=== PATIENT | female | born 1990 | race Hispanic/Latino ===

== ENCOUNTER 2018-02-10 00:33 | Emergency (ER) | payer OTHER ==
[2018-02-10] MEDS ORDERED: METAL LOCK LOOP XX (02:06)
[2018-02-10] MEDS: diphenhydrAMINE INJ 50MG/ML VIAL (J1200) IM (02:06)
[2018-02-10] MEDS: methylPREDNISolone INJ 125 MG/2 ML VIAL (J2930) IM (02:29)
== END 2018-02-10 03:04 | disposition home or self-care (01) ==
LOC: M ED 00:33
DX: T78.40XA Allergy, unspecified, initial encounter (principal)
CPT/HCPCS: J2930

== ENCOUNTER 2018-07-08 19:40 | Emergency (ER) | payer OTHER ==
[~2018-07-08] VITALS: Ht 160 cm; Wt 89.5 kg
[2018-07-08 19:40] VITALS: BP 130/73
[~2018-07-08 19:40] MED LIST: BENA25TA10 PO; PRED20TA PO
== END 2018-07-08 22:38 | disposition left against medical advice (07) ==
LOC: M ED 19:40
DX: M54.9 Dorsalgia, unspecified (principal); Z53.21 Procedure and treatment not carried out due to patient leaving prior to being seen by health care provider

== ENCOUNTER 2018-09-25 15:10 | Emergency (ER) | payer OTHER ==
[~2018-09-25] VITALS: Ht 160 cm; Wt 90.8 kg
[2018-09-25] MEDS ORDERED: EXCETAB33 PO (15:55)
--- NOTE | 2018-09-25 16:02 | REP ---
Chest one-view HISTORY: Chest pain Comparison: None The lungs are clear. The heart is normal in size. The pulmonary vasculature is normal in appearance. Impression: No acute disease. Electronically Signed by Lio Dunn MD 09/25/2018 03:54 P
[2018-09-25 16:06] LABS: BASO % 0.3 % (0.0-1.0); EOS % 0.2 % (0.0-3.0); HEMATOCRIT 38.1 % (36.0-47.0); HEMOGLOBIN 12.5 g/dl (12.0-15.5); LYMPH # 1.6 10^3/uL (1.5-6.5); LYMPH % 17.1 % (24.0-44.0); MEAN CORPUSCULAR HGB CONC 32.8 g/dl (32.0-36.5); MEAN CORPUSCULAR VOLUME 88.4 fl (80.0-96.0); MONO # 0.6 10^3/uL (0.0-0.8); MONO % 5.8 % (0.0-5.0); NEUTROPHILS # 7.3 10^3/uL (1.8-7.7); NEUTROPHILS % 76.3 % (36.0-66.0); PLATELET COUNT, AUTOMATED 378 10^3/uL (150-450); RED BLOOD COUNT 4.31 10^6/uL (4.00-5.40); WHITE BLOOD COUNT 9.5 10^3/uL (4.0-10.0)
[2018-09-25 16:31] LABS: HCG, SERUM QUALITATIVE NEGATIVE (NEGATIVE)
[2018-09-25 16:37] LABS: ACETAMINOPHEN LEVEL < 2.0 UG/ML (10.0-30.0); ALBUMIN 3.9 GM/DL (3.2-5.2); ALT/SGPT 24 U/L (12-78); BILIRUBIN,DIRECT 0.1 MG/DL (0.0-0.2); BILIRUBIN,TOTAL 0.5 MG/DL (0.2-1.0); BLOOD UREA NITROGEN 9 MG/DL (7-18); CALCIUM LEVEL 8.5 MG/DL (8.5-10.1); CARBON DIOXIDE LEVEL 27 MEQ/L (21-32); CHLORIDE LEVEL 109 MEQ/L (98-107); CPK CREATINE PHOSPHOKINASE 142 U/L (26-192); CREATININE FOR GFR 0.78 MG/DL (0.55-1.30); ETHYL ALCOHOL (ETHANOL) < 0.003 % (0.000-0.010); GLOMERULAR FILTRATION RATE > 60.0 (>60); GLUCOSE, FASTING 97 MG/DL (70-100); MB/CK RELATIVE INDEX 1.48 (< OR =4); POTASSIUM SERUM 4.1 MEQ/L (3.5-5.1); SALICYLATE LEVEL < 1.7 MG/DL (5.0-30.0); SODIUM LEVEL 140 MEQ/L (136-145); TOTAL PROTEIN 7.2 GM/DL (6.4-8.2); TROPONIN I < 0.02 NG/ML (< 0.10)
[2018-09-25] MEDS ORDERED: NS 1,000 ML IV ONE (17:15)
[2018-09-25] MEDS ORDERED: LIDOCAINE 2% 5ML JELLY UROJET TOP ONE (17:15)
--- NOTE | 2018-09-25 17:40 | REP ---
CT BRAIN WITHOUT IV CONTRAST: CT brain performed without IV contrast. Ventricles are normal in size and position. There is no midline shift or mass effect. Luna/white differentiation is well maintained. There is no acute intracranial hemorrhage or extra-axial fluid collection. Bone window examination is unremarkable. Visualized paranasal sinuses and mastoid air cells are clear. IMPRESSION: Negative noncontrast CT brain. Electronically Signed by Moshe Luna MD 09/26/2018 02:58 P
[2018-09-25 18:06] LABS: AMPHETAMINES LEVEL URINE NEGATIVE (NEGATIVE); BARBITURATES URINE NEGATIVE (NEGATIVE); BENZODIAZEPINES URINE NEGATIVE (NEGATIVE); CANNABINOIDS URINE NEGATIVE (NEGATIVE); COCAINE METABOLITE URINE NEGATIVE (NEGATIVE); METHADONE URINE NEGATIVE (NEGATIVE); OPIATES URINE NEGATIVE (NEGATIVE); PHENCYCLIDINE URINE NEGATIVE (NEGATIVE)
[2018-09-25 19:30] VITALS: BP 151/95
--- NOTE | 2018-09-25 19:51 | ECGEPIP ---
Stationary ECG Study [facility] - ED Test Date: 2018-09-25 Pat Name: RUFINO NELSON Department: Room: - Gender: F Independent Contractor: : 1990 Requested By: Ludwig Olivares Order Number: [id number] Reading MD: Ludwig Olivares Measurements Intervals [place] Rate: 72 P: 65 WA: 152 QRS: 70 QRSD: 84 T: 58 QT: 380 QTc: 418 Interpretive Statements SINUS RHYTHM WITH SINUS ARRHYTHMIA NO OLD ECG FOR COMPARISON Electronically Signed On 09-25-2018 19:51:08 EDT by Ludwig Olivares
== END 2018-09-25 21:11 | disposition home or self-care (01) ==
LOC: M ED 15:10 → EDBD 15:10 → M ED 21:11
DX: F43.0 Acute stress reaction (principal); G43.909 Migraine, unspecified, not intractable, without status migrainosus
CPT/HCPCS: 70450; 71045; 80048; 80076; 80307; 82550; 82553; 84443; 84484; 84703; 85025; 93005; 93041; 94760; 99285; G0480